=== PATIENT | female | born 1995 | race Caucasian/White ===

== ENCOUNTER → 2018-08-26 09:12 | Outpatient (CLI) | payer OTHER, SELFPAY ==
[2018-08-26 10:56] LABS: Cholesterol 179 mg/dL (200); Glucose 82 mg/dL (74-106); High Density Lipoprotein 82 mg/dL; Triglycerides 49 mg/dL; Very Low Density Lipoprotein 10 mg/dL (5-40)
== END ==
PROVIDERS: Family Provider Family Medicine; PCP Family Medicine; Visit Provider Family Medicine
DX: Z00.00 Encounter for general adult medical examination without abnormal findings (principal)
CPT/HCPCS: 36415; 80061; 82947

== ENCOUNTER → 2021-05-05 09:04 | Outpatient (CLI) | payer BC, SELFPAY ==
[2021-05-07 13:16] LABS: HPV Reflexed? NOT INDICATED
== END ==
PROVIDERS: PCP Family Medicine; Referring Provider Nurse Practitioner Women's Health; Visit Provider Nurse Practitioner Women's Health
DX: N76.0 Acute vaginitis (principal); Z12.4 Encounter for screening for malignant neoplasm of cervix
CPT/HCPCS: 87070; 87205; 88175; G0145

== ENCOUNTER → 2023-09-09 | Outpatient (CLI) | payer BC, SELFPAY ==
[2023-09-09 14:27] LABS: Absolute Lymphocyte Count 2.42 X10^3/uL (0.83-4.51); Absolute Neutrophil Count 4.7 X10^3/uL (2.0-7.7); Basophil# 0.04 X10^3/uL; Basophil% 0.5 % (0-1); Eosinophil# 0.04 X10^3/uL; Eosinophils% 0.5 % (0-5); Hematocrit 40.4 % (37-47); Hemoglobin 13.1 g/dL (12.0-15.0); Lymphocyte # 2.42 X10^3/ul (0.83-4.51); Lymphocyte % 30.9 % (19-41); Mean Corp Hgb Conc 32.4 g/dL (32-36); Mean Corpuscular Hgb 30.5 pg (27.0-32.0); Mean Corpuscular Volume 94.2 fL (81-99); Mean Platelet Vol. 8.9 fl (6.2-12.0); Monocyte# 0.62 X10^3/uL; Monocyte% 7.9 % (0-10); NRBC Flagged by Analyzer 0 % (0-5); Neutrophil # 4.68 X10^3/uL (2.7-7.7); Neutrophil % 59.9 % (47-70); Platelet Count 308 K/mm3 (150-450); RBC Distribution Width CV 13.3 % (11.6-14.6); RBC Distribution Width SD 45.9 fl (35.1-43.9); Red Blood Count 4.29 M/mm3 (4.2-5.4); White Blood Count 7.8 K/mm3 (4.4-11.0)
[2023-09-09 15:44] LABS: HIV - WCH Non-Reactive (Nonreactive); Hepatitis B Surface Antigen Non-Reactive (Nonreactive); Hepatitis C Antibody Non-Reactive (Nonreactive); Rubella IgG Reactive (Nonreactive); Syphilis Antibodies Non-reactive
[2023-09-11 09:33] LABS: V-Zoster IgG (Immunity) 300 index (Immune >165)
[2023-09-13 22:07] LABS: Chlamydia By Nucleic Acid AMP Negative (Negative); Gonococcus By Nucleic Acid AMP Negative (Negative)
== END | disposition home or self-care (01) ==
PROVIDERS: PCP Family Medicine; Referring Provider Advanced Practice Midwife; Visit Provider Advanced Practice Midwife
DX: Z34.90 Encounter for supervision of normal pregnancy, unspecified, unspecified trimester (principal)
CPT/HCPCS: 36415; 85025; 86703; 86762; 86780; 86787; 86803; 86850; 86900; 86901; 87086; 87088; 87340; 87491; 87591

== ENCOUNTER → 2023-11-24 | Outpatient (CLI) | payer BC, SELFPAY ==
--- NOTE | 2023-11-24 13:34 | US_ITS ---
STUDY: SECOND AND THIRD TRIMESTER OBSTETRICAL ULTRASOUND REASON FOR EXAM: Female, 28 years old . anatomy scan. LMP: July 07, 2023. TECHNIQUE: Transabdominal TECHNICAL QUALITY: Adequate. PRIOR ULTRASOUND: None. FINDINGS: There is a single intrauterine fetus. The fetus is in an transverse lie with the head on the maternal left side. There is demonstrated cardiac activity with a heart rate of 153 bpm. There is a normal amniotic fluid volume. The largest amniotic fluid pocket measures 3.3 cm x 5.8 cm. The amniotic fluid index (NICOLETTE) is within normal limits. The placenta is posterior in location and is not low lying. The tip of the placenta is at 2.8 cm proximal to the cervical os. There are Grade 0 placental changes. The cervix measures 4.8 cm in length. The bilateral adnexal regions are normal. BIOMETRY: BPD: 5.1 cm: 21 weeks, 4 days HC: 18.1 cm: 20 weeks, 4 days AC: 15.4 cm: 20 weeks, 4 days FL: 3.1 cm: 19 weeks, 5 days CI: 84% FL/BPD: 61% FL/HC: FL/AC: 20% HC/AC: 1.18 age by current US: 20 weeks, 3 days. IFRAH by current US: April 09, 2027. Estimated weight: 349 grams, +/- 52 grams, 66 %. Age by LMP: 20 weeks, 0 days. IFRAH by LMP: April 12, 2024. ANATOMY: Gender: Indeterminant Cranium: Normal lateral ventricles. Normal choroid plexus. Normal cerebellum. Normal cisterna magna. Normal face, nose and lips. Chest: Normal 4-chamber heart. Abdomen/Pelvis: Normal diaphragm. Normal stomach. Normal abdominal wall. Normal cord insertion. Normal 3 vessel cord. Normal kidneys. Normal bladder. Spine: Normal cervical spine. Normal thoracic spine. Normal lumbar spine. Normal sacrum. Extremities: Normal bilateral upper extremities. Normal bilateral lower extremities. US/OB Anatomy w/ Transvaginal IMPRESSION: Single live intrauterine gestation with a mean gestational age of 20 weeks and 3 days. Electronically Signed: Guillermo Duran MD at 15:15 EDT ,
== END | disposition home or self-care (01) ==
PROVIDERS: PCP Family Medicine; Referring Provider Obstetrics & Gynecology; Visit Provider Obstetrics & Gynecology
DX: O09.90 Supervision of high risk pregnancy, unspecified, unspecified trimester (principal); Z3A.00 Weeks of gestation of pregnancy not specified
CPT/HCPCS: 76805; 76817

== ENCOUNTER 2024-01-20 14:09 | Outpatient (CLI) | payer BC, SELFPAY ==
[2024-01-20 14:44] LABS: Absolute Lymphocyte Count 2.12 X10^3/uL (0.83-4.51); Absolute Neutrophil Count 6.1 X10^3/uL (2.0-7.7); Basophil# 0.03 X10^3/uL; Basophil% 0.3 % (0-1); Eosinophil# 0.03 X10^3/uL; Eosinophils% 0.3 % (0-5); Hematocrit 37.3 % (37-47); Hemoglobin 12.3 g/dL (12.0-15.0); Lymphocyte # 2.12 X10^3/ul (0.83-4.51); Lymphocyte % 23.7 % (19-41); Mean Corpuscular Hgb 31.3 pg (27.0-32.0); Mean Corpuscular Volume 94.9 fL (81-99); Mean Platelet Vol. 8.9 fl (6.2-12.0); Monocyte# 0.63 X10^3/uL; Monocyte% 7.1 % (0-10); NRBC Flagged by Analyzer 0 % (0-5); Neutrophil % 68.4 % (47-70); Platelet Count 272 K/mm3 (150-450); RBC Distribution Width CV 12.9 % (11.6-14.6); RBC Distribution Width SD 44.9 fl (35.1-43.9); Red Blood Count 3.93 M/mm3 (4.2-5.4); White Blood Count 8.9 K/mm3 (4.4-11.0)
[2024-01-20 14:57] LABS: Glucose Challenge Gest 1H 50g 142 mg/dL (70-140)
[2024-01-20 20:35] LABS: HIV - WCH Non-Reactive (Nonreactive); Syphilis Antibodies Non-reactive
== END 2024-01-20 23:59 | disposition home or self-care (01) ==
PROVIDERS: Advanced Practice Midwife; PCP Family Medicine; Referring Provider Nurse Practitioner Women's Health; Visit Provider Nurse Practitioner Women's Health
DX: O09.92 Supervision of high risk pregnancy, unspecified, second trimester (principal); Z3A.23 23 weeks gestation of pregnancy; Z13.1 Encounter for screening for diabetes mellitus
CPT/HCPCS: 36415; 82950; 85025; 86703; 86780

== ENCOUNTER → 2024-01-25 | Outpatient (CLI) | payer BC, SELFPAY ==
[2024-01-25 07:26] LABS: Bedside Glucose 78 mg/dL (74-106)
[2024-01-25 07:47] LABS: Glucose GTT- Fasting 87 mg/dL (74-106)
[2024-01-25 08:54] LABS: Glucose GTT-30 minutes 136 mg/dL (110-170)
[2024-01-25 09:00] LABS: Glucose GTT- 1 Hour 145 mg/dL (120-170)
[2024-01-25 09:35] LABS: Glucose GTT- 2 Hour 124 mg/dL (70-120)
[2024-01-25 11:12] LABS: Glucose GTT- 3 Hour 103 mg/dL (74-106)
== END | disposition home or self-care (01) ==
LOC: LAB 06:55
PROVIDERS: PCP Family Medicine; Referring Provider Advanced Practice Midwife; Visit Provider Advanced Practice Midwife
DX: O99.810 Abnormal glucose complicating pregnancy (principal); Z3A.00 Weeks of gestation of pregnancy not specified
CPT/HCPCS: 36415; 82951; 82952; 82962

== ENCOUNTER → 2024-03-17 | Outpatient (CLI) | payer OTHER, SELFPAY | END | disposition home or self-care (01) | LOC: LABSPEC 16:33 | PROVIDERS: PCP Family Medicine; Referring Provider Obstetrics & Gynecology; Visit Provider Obstetrics & Gynecology | DX: Z34.93 Encounter for supervision of normal pregnancy, unspecified, third trimester (principal) | CPT/HCPCS: 87081 ==

== ENCOUNTER → 2024-04-04 | Outpatient (CLI) | payer OTHER, SELFPAY ==
[2024-04-04 09:26] LABS: Absolute Lymphocyte Count 2.02 X10^3/uL (0.83-4.51); Absolute Neutrophil Count 4.6 X10^3/uL (2.0-7.7); Basophil# 0.05 X10^3/uL; Basophil% 0.7 % (0-1); Eosinophil# 0.05 X10^3/uL; Eosinophils% 0.7 % (0-5); Hematocrit 38.5 % (37-47); Hemoglobin 12.7 g/dL (12.0-15.0); Lymphocyte # 2.02 X10^3/ul (0.83-4.51); Lymphocyte % 26.9 % (19-41); Mean Corpuscular Volume 93.9 fL (81-99); Mean Platelet Vol. 10.3 fl (6.2-12.0); Monocyte# 0.75 X10^3/uL; NRBC Flagged by Analyzer 0 % (0-5); Neutrophil # 4.61 X10^3/uL (2.7-7.7); Neutrophil % 61.4 % (47-70); Platelet Count 206 K/mm3 (150-450); RBC Distribution Width CV 13.4 % (11.6-14.6); White Blood Count 7.5 K/mm3 (4.4-11.0)
[2024-04-04 09:44] LABS: ALB/GLOB Ratio 0.7 RATIO (0.9-2.4); AST(SGOT) 18 U/L (15-37); Alanine Aminotransfer ALT/SGPT 16 U/L (13-56); Albumin, Serum 2.8 g/dL (3.2-5.0); Alkaline Phosphatase 137 U/L (45-117); Anion Gap 6 (5-15); BUN 11 mg/dL (7-18); Calcium,Total 9.7 mg/dL (8.5-10.1); Chloride 107 mmol/L (98-107); Creatinine, Serum 0.78 mg/dL (0.55-1.02); EST Glomerular Filtration Rate 93 mL/min (>60); Est Glom Filt Rate - Afr Amer 113 mL/min (>60); Globulin 4.2 g/dL (2.2-4.2); Glucose 81 mg/dL (74-106); Potassium 4.2 mmol/L (3.5-5.1); Sodium Level 138 mmol/L (136-145)
[2024-04-04 09:45] LABS: Protein, Urine (Random) 6.9 mg/dL (<11.9); Protein:Creat Ratio 155 mg/g CRE (0-200)
[2024-04-04 11:09] LABS: Protein, Urine (Random) 26.8 mg/dL (<11.9); Protein:Creat Ratio 174 mg/g CRE (0-200)
== END | disposition home or self-care (01) ==
PROVIDERS: PCP Family Medicine; Referring Provider Obstetrics & Gynecology; Visit Provider Obstetrics & Gynecology
DX: O12.00 Gestational edema, unspecified trimester (principal); Z3A.00 Weeks of gestation of pregnancy not specified
CPT/HCPCS: 36415; 80053; 82570; 84156; 85025

== ENCOUNTER 2024-04-11 13:23 | Inpatient (IN) | payer OTHER, SELFPAY ==
[2024-04-11] VITALS (15 sets, daily range): BP systolic 139–173; BP diastolic 75–93; PULSE 70–85; RESP 16; TEMP 36.1–36.9; O2SAT 95–99; BMI 31.0
--- NOTE | 2024-04-11 12:57 | HP.PCM.OB_ITS ---
HPI - General HPI Narrative MARGRET GASTELUM, is a 29 y/o @ 39 weeks 6 days who presents to L&D for high blood pressures and pitting edema. She denies headache or visual changes. PIH labs are pending today but were negative last week. Maternal Data Information IFRAH Calculator Estimated Delivery Date Method Current WG Current Estimate 04/12/24 LMP (Certain) 39w 6d PFSH PFSH Medical History Frequent headaches Home Medications ?Medication ?Instructions ?Recorded ?Last Taken ?Type ascorbic acid (vitamin C) 500 mg 500 mg PO DAILY 09/03/23 04/11/24 06:47 History tablet calcium carbonate (Calcium 600) 600 mg PO DAILY 09/03/23 Unknown History licorice root (G.glabra) 450 mg mg PO immunity boost 09/03/23 04/11/24 History capsule multivitamin no.47-iron fum 27 cap PO 09/03/23 Unknown History mg-folate no.1 1 mg-dha 300 mg capsule (PNV-DHA) sertraline 50 mg tablet 50 mg PO 04/11/24 04/10/24 22:00 History 50 mg Allergy/AdvReac Type Severity Reaction Status Date / Time Latex, Natural Rubber Allergy Unknown PT UNSURE Verified 04/11/24 12:47 OF REACTION Family History Mother Cancer, Onset Age: 48 Ovarian FH: multiple miscarriages or stillbirths 2 miscarriages Aunt Breast cancer Surgical History [place] teeth removed Social History adopted: No household members: spouse current occupational status: employed current occupation: [employer] current occupational exposures/hazards: No pets and animals: No history of recent travel: No sexually active: Yes Smoking Status: Never smoker second hand exposure: No alcohol intake: never substance use type: does not use well-balanced diet: daily or most days caffeine: No eating out: 1-3 times/week during the past year weight has: increased > 10 lbs what type of physical activity do you participate in: none chau/church: Islam seatbelt use: always do you feel safe at home: Yes additional social history: - Giancarlo Gastelum History 1 Elective abortions Hx Para 0 Spontaneous abortions Hx # Term Pregnancies Ectopic pregnancies Hx # Pregnancies Multiple births # of living children Visit Details Expected Delivery Route/Plan Labor Preferences- CB/BF classes: scheduled labor support person: Giancarlo labor intervention preferences: [] pain management options preferred: epidural cut cord/dad catch: yes : yes PP control planned: discussed discussed possible routes of delivery and associated risks: [] special requests: [] Plans Covid status: [] Flu vaccine: [] Tdap vaccine: given Rhogam: na LARC form signed: declined movement and labor precautions reviewed. Problem list reviewed and updated with the most current plan of care details and appropriate orders placed. Relevant counseling for the gestational age provided. Continue routine care and follow up unless otherwise noted in visit notes/problem list details OB Flowsheet Initial Weight: Not Recorded Date -?-?-?-?-?-?-?-?-?-?-?-?- EGA Weight BP Urine Prot -?-?-?-?-?-?-?-?-?-?-?-?- Glucose FHR FuHt Pres Dilation -?-?-?-?-?-?-?-?-?-?-?-?- Effaced St Visit Note 09/09/23 -?-?-?-?-?-?-?-?-?-?-?-?- 9w 1d 163 lb 2 oz 124/80 -?-?-?-?-?-?-?-?-?-?-?-?- 185 -?-?-?-?-?-?-?-?-?-?-?-?- KW-CRL cons with dates. doing well. Discussed NIPT and carrier and wants to check with insurance. 09/30/23 -?-?-?-?-?-?-?-?-?-?-?-?- 12w 1d 162 lb 8 oz 140/85 Nega tive -?-?-?-?-?-?-?-?-?-?-?-?- Negative 171 -?--?-?-?-?-?-?-?-?-?-?-?- kw- work in for vaginal bleeding. US showed movement and strong FHT. rh positive. precautions given 10/29/23 -?-?-?-?-?-?-?-?-?-?-?-?- 16w 2d 161 lb 2 oz 133/83 Nega tive -?-?-?-?-?-?-?-?-?-?-?-?- Negative 156 -?-?-?-?-?-?-?-?-?-?-?-?- JV- still spotti ng from time to time. on exam no blood is present in vagina but there is a string of brown mucous coming from the os. The os is closed and the cervix appears long and healthy. Recommend refraining from vigorous exercise and sex until anatomy scan is back and confirms no previa. 11/25/23 -?-?-?-?-?-?-?-?-?-?-?-?- 20w 1d 166 lb 136/86 -?-?-?-?-?-?-?-?-?-?-?-?- 145 -?-?-?-?-?-?-?--?-?-?-?-?- SM- no vb lof cr maping reviewed labs and US 12/20/23 -?-?-?-?-?-?-?-?-?-?-?-?- 23w 5d 169 lb 4 oz 131/83 Nega tive -?-?-?-?-?-?-?-?-?-?-?-?- Negative 139 -?-?-?-?-?-?-?-?-?-?-?-?- MH-No VB, LOF. G ood FM. 28 labs next visit. 01/20/24 -?-?-?-?-?-?-?-?-?-?-?-?- 28w 1d 168 lb 6 oz 115/79 Nega tive -?-?-?-?-?-?-?-?-?-?-?-?- Negative 145 28 -?-?-?-?-?-?-?-?-?-?-?-?- KW- no vb/lof/ct x. good fm. discussed results. needs 3 hour. Declines Tdap. LARC today. CBE classes in 02/02/24 -?-?-?-?-?-?-?-?-?-?-?-?- 30w 0d 172 lb 4 oz 122/75 -?-?-?-?-?-?-?-?-?-?-?-?- 140 30 -?-?-?-?-?-?-?-?-?-?-?-?- JV- no lof, vagi nal bleeding, or dec fm. 02/17/24 -?-?-?-?-?-?-?-?-?-?-?-?- 32w 1d 172 lb 130/86 -?-?-?-?-?-?-?-?-?-?-?-?- 145 32 -?-?-?-?-?-?-?-?-?-?-?-?- SM- no vb lof go od fm no regular ctx some pelvic pressure no uti symptoms SM- no vb lof good fm no reg ular ctx some pelvic pressure with walking and exercise. no uti symptoms 03/17/24 -?-?-?-?-?-?-?-?-?-?-?-?- 36w 2d 178 lb 4 oz 130/82 Nega tive -?-?-?-?-?-?-?-?-?-?-?-?- Negative 150 36 Cephalic 0 -?-?-?-?-?-?-?-?-?-?-?-?- JV- no lof, vagi nal bleeding, or dec fm. gbs collected 03/22/24 -?-?-?-?-?-?-?-?-?-?-?-?- 37w 0d 179 lb 2 oz 123/83 Nega tive -?-?-?-?-?-?-?-?-?-?-?-?- Negative 153 37 -?-?-?-?-?-?-?-?-?-?-?-?- MH-No Vb, LOF. G ood FM. No CTX. Neg GBS 03/28/24 -?-?-?-?-?-?-?-?-?-?-?-?- 37w 6d 183 lb 140/89 Negative -?-?-?-?-?-?-?-?-?-?-?-?- Negative 140 37 Cephalic -?-?-?-?-?-?-?-?-?-?-?-?- SM- no vb lof go od fm no regular ctx 04/04/24 -?-?-?-?-?-?-?-?-?-?-?-?- 38w 6d 181 lb 2 oz 131/88 Nega tive -?-?-?-?-?-?-?-?-?-?-?-?- Negative 143 37 Cephalic 0 .5 -?-?-?-?-?-?-?-?-?-?-?-?- 30 JV- send ing for PIH labs due to last 2 weeks of borderline pressures and significant pitting edema. patient has no complaints. ROS Constitutional Constitutional: Denies change in weight, fatigue, fever(s), headache(s), poor appetite or weakness Eyes Eyes: Denies blurry vision, change in vision, seeing flashes or spots in vision ENT HEENT: Denies dizziness, headache(s), loss taste/smell or sore throat Cardiovascular Cardiovascular: Denies chest pain, dizziness, dyspnea, irregular heart rhythm, leg edema, palpitations, rapid heart rate or vomiting Respiratory/Chest Respiratory/Chest: Denies chest tightness, cough, dyspnea or breast pain Gastrointestinal Gastrointestinal: Denies abdominal pain, anorexia, constipation, cramping, diarrhea, hemorrhoids, vomiting or weight changes Genitourinary Genitourinary: Denies dysuria, flank pain, genital lesions, genital pain, urinary frequency or urinary urgency Musculoskeletal Musculoskeletal: Denies back pain, difficulty walking, joint pain, limited range of motion, muscle cramps or numbness Integumentary Integumentary: Denies lesions or unusual bruising Neurologic Neurologic: Denies abnormal movements, abnormal speech, dizziness, numbness, se izure-like activity or syncope Psychiatric Psychiatric: Denies anxiety, behavioral changes, change in appetite, change in libido, cognitive impairment, confusion, depression, difficulty concentrating, hallucinations or suicidal thoughts Endocrine Endocrinology: Denies excessive sweating, polydipsia or polyuria Hematologic/Lymphatic Hematologic/Lymphatic: Denies easy bleeding, easy bruising or lymphadenopathy Allergic/Immunologic Allergic/Immunologic: Denies itchy eyes, lip swelling, seasonal rhinorrhea, rhinitis, throat swelling, tongue swelling, eczemia, wheezing or asthma Vital Signs Vital Signs Vital Signs: 04/11/24 12:17 04/11/24 12:17 04/11/24 12:33 Pulse Rate 84 Blood Pressure 145/93 H 143/90 H BP Systolic 145 143 BP Diastolic 93 90 04/11/24 12:33 04/11/24 12:47 04/11/24 12:47 Pulse Rate 85 81 Blood Pressure 157/91 H BP Systolic 157 BP Diastolic 91 Weight Weight: 181 lb Body Mass Index (BMI) 31.0 Physical Exam Const alert, oriented x3, no apparent distress and healthy appearing General Appearance: cooperative; Negative for anxious HEENT normocephalic Face and Sinus: normal facial exam Eyes EOMs intact bilaterally and no scleral icterus General Eye: normal appearance of both eyes Neck full ROM and supple Lymph Lymphatic: no lymphadenopathy noted Chest Chest: abnormal inspection of the chest Resp normal respiratory effort Effort and Inspection: able to speak in complete sentences Cardio regular rate GI soft to palpation and non-tender Inspection: gravid Palpation: soft; Negative for tender Back/Spine no CVA tenderness Extremity normal to inspection, full ROM and no clubbing, cyanosis or edema General Extremity: Negative for calf tenderness or edema Skin Lesions: no lesions Rashes: no rashes Psych mental status grossly normal Labs Labs Labs: Blood Type A POSITIVE Antibody Screen NEGATIVE Hct 38.5 % (37-47) Hgb 12.7 g/dL (12.0-15.0) Obstetrics Ultrasound Syphilis Total Ab Non-reactive VZV IgG Antibody 300 index (Immune >165) Rubella IgG Antibody Reactive (Nonreactive) Hep Bs Antigen Non-Reactive (Nonreactive) Hepatitis C Antibody Non-Reactive (Nonreactive) Chlamydia DNA (VALENTE) Negative (Negative) N.gonorrhoeae DNA (VALENTE) Negative (Negative) HIV 1&2 Antibody Non-Reactive (Nonreactive) Glucose 1 Hr 50 gm 142 mg/dL (70-140) H Assessment & Plan (1) Gestational hypertension: (2) Swelling of lower extremity during : (3) Abnormal glucose affecting : COMMENT: passed 3 hour (4) Family history of autistic disorder: COMMENT: (5) Supervision of high-risk : QUALIFIERS: Trimester: third trimester Qualified Code(s): O09.93 - Supervision of high risk , unspecified, third trimester COMMENT: PRR , IFRAH 04/12/24, surprise Giancarlo (6) : QUALIFIERS: Weeks of gestation: 39 weeks Qualified Code(s): Z3A.39 - 39 weeks gestation of COMMENT: declined ntd genetic & carrier testing, nl anatomy (7) Anxiety: COMMENT: zoloft- OCD tendencies, not dx; stable (8) Family history of malignant neoplasm of ovary in first degree relative: COMMENT: Mother dx age 48. surgery and chemo, 10 yr post dx. Counseled on testing and declines presently. Declines PLAN: Plan Patient presents IOL, plan management for with cytotec then calderon/ p itocin/AROM. Pain management: plans epidural. GBS negative. Management of any complications: gestational hypertension- ordering PIH labs. likely will start with cytotec. I have reviewed the [facility] and made any clinically relevant updates.
[2024-04-11 13:19] LABS: Hematocrit 38.3 % (37-47); Hemoglobin 12.6 g/dL (12.0-15.0); Mean Corp Hgb Conc 32.9 g/dL (32-36); Mean Corpuscular Hgb 31.1 pg (27.0-32.0); Mean Corpuscular Volume 94.6 fL (81-99); Platelet Count 215 K/mm3 (150-450); RBC Distribution Width CV 13.3 % (11.6-14.6); RBC Distribution Width SD 45.9 fl (35.1-43.9); Red Blood Count 4.05 M/mm3 (4.2-5.4); White Blood Count 6.8 K/mm3 (4.4-11.0)
[2024-04-11 13:21] LABS: AST(SGOT) 18 U/L (15-37); Alanine Aminotransfer ALT/SGPT 17 U/L (13-56); Creatinine, Serum 0.72 mg/dL (0.55-1.02); Creatinine, Urine (random) < 13.00 mg/dL (NO RANGE EST.); EST Glomerular Filtration Rate 104 mL/min (>60); Est Glom Filt Rate - Afr Amer 126 mL/min (>60); Estimated Creatinine Clearance 121.66 ml/min; Protein, Urine (Random) < 6.0 mg/dL (<11.9); Uric Acid 4.1 mg/dL (2.6-6.0)
[2024-04-11 14:29] LABS: Syphilis Antibodies Non-reactive
[2024-04-11] MEDS: miSOPROStol 25 MCG TABLET VAGINAL (14:38)
[2024-04-11] MEDS: 0.9% Saline Lock 10 ML Syringe IV ×2 (14:41→21:16)
[2024-04-11] MEDS: 0.9% Normal Saline Single 100 ML IV.SOLN. INTRA-UTER (18:08)
--- NOTE | 2024-04-11 18:17 | PCM.PN.BLA ---
Progress Note patient is comfortable in bed. She has received 1 dose of cytotec and renay q 2 min. current tracing: FHT: Moderate variability reactive no decelerations category I tracing Gallant: q 2 min Contractions cx 1 50/-2, calderon balloon placed and inflated with 60cc of NS. The patient tolerated this well A/P: if able based on contraction patter, plan for buccal cytotec next 25 mcg.
[2024-04-11] MEDS: miSOPROStol 25 MCG TABLET BUCCAL (18:45)
[2024-04-11] MEDS: Ondansetron 4 MG/2 ML Vial IV (21:16)
[2024-04-11] MEDS: Lactated Ringers 1,000 ML 50 ML IV (22:36)
[2024-04-12] VITALS (76 sets, daily range): BP systolic 127–162; BP diastolic 63–109; PULSE 62–141; RESP 14–18; TEMP 36.1–37.4; O2SAT 92–100
[2024-04-12] MEDS: LACTATED RINGERS 500 ML 999 ML IV ×2 (00:45→02:38)
[2024-04-12] MEDS: fentaNYL-bupivacaine (epidural) 100 ML BAG EPIDURAL ×3 (01:44→10:20)
[2024-04-12] MEDS: Amnioinfusion- 0.9% NS 1,000 ML IV.SOLN. INTRA-UTER (05:20)
[2024-04-12] MEDS: Lactated Ringers 1,000 ML 200 ML IV ×2 (06:16→11:47)
--- NOTE | 2024-04-12 12:52 | OP.PCM_ITS ---
Assessment & Plan (1) Gestational hypertension: (2) Abnormal glucose affecting : COMMENT: passed 3 hour (3) Family history of autistic disorder: COMMENT: (4) Supervision of high-risk : QUALIFIERS: Trimester: third trimester Qualified Code(s): O09.93 - Supervision of high risk , unspecified, third trimester COMMENT: PRR , IFRAH 04/12/24, surprise Giancarlo (5) : QUALIFIERS: Weeks of gestation: 39 weeks Qualified Code(s): Z3A.39 - 39 weeks gestation of COMMENT: declined ntd genetic & carrier testing, nl anatomy (6) Anxiety: COMMENT: zoloft- OCD tendencies, not dx; stable (7) Family history of malignant neoplasm of ovary in first degree relative: COMMENT: Mother dx age 48. surgery and chemo, 10 yr post dx. Counseled on testing and declines presently. Declines (8) Vaginal delivery: Maternal Data Information IFRAH Calculator Estimated Delivery Date Method Current WG Current Estimate 04/12/24 LMP (Certain) 40w 0d Vaginal Delivery Operative Information Date of Procedure: 04/12/24 Pre-Operative Diagnosis: see a/p diagnoses Post-Operative Diagnosis: same Surgery / Procedure Performed: Spontaneous Vaginal Delivery Type of Anesthesia: Epidural Special Medications: none Estimated Blood Loss: 400 Fluids Replaced: crystalloid Findings Description of Procedure: Patient began pushing and delivered the head in the ANNA presentation. The head was delivered atraumatically . The anterior and posterior shoulders delivered without complication followed by the rest of the infant and the infant was placed on the maternal abdomen. Delayed cord clamping was employed for approximately 60 seconds. Cord was clamped and cut and gentle traction was applied to the cord and the placenta delivered spontaneously immediately following it was noted to be intact with three-vessel cord. The perineum and vagina were inspected and noted to have a second degree perineal laceration which was repaired in the usual fashion with 3-0 vicryl rapide. . EBL was 400. Patient and infant tolerated delivery well. Amniotic Fluid Description: Clear Placental Delivery Description: Spontaneous Placenta Disposition: [facility] Cord Vessel Description: 3 Vessels Cord Entanglement: None Delayed Cord Clamping: Yes Post Vaginal Delivery Medications Given After Delivery: IV Pitocin Episiotomy Description: None Complication Complications: None Procedures Urinary/Genital [id number]: [id number] Vaginal Delivery [facility]
[2024-04-12] MEDS: Oxytocin 15 Units/NS 250ml 15 UNITS/250 ML IV.SOLN 334 UNITS IV (13:05)
[2024-04-12] MEDS: Oxytocin 15 Units/NS 250ml 15 UNITS/250 ML IV.SOLN 83 UNITS IV (13:35)
[2024-04-12] MEDS: 0.9% Saline Lock 10 ML Syringe IV (17:27)
[2024-04-12] MEDS: Acetaminophen 500 MG Tablet 1000 MG PO (21:56)
[2024-04-13 04:14] VITALS: BP 137/75; PULSE 67; RESP 16; TEMP 36.3; O2SAT 96
[2024-04-13 08:00] VITALS: BP 138/92; PULSE 73; RESP 16; TEMP 36.5; O2SAT 98
--- NOTE | 2024-04-13 08:15 | PN.OBGYN_ITS ---
Subjective Subjective Patient doing well without complaints. Tolerating PO. Ambulating and voiding without difficulty. Feeding well. Denies chest pain, shortness of breath, calf pain/swelling, fevers, chills, lightheadedness. Note fluncuating BPs Objective Data Objective Data Vital Signs: Vital Signs Temp Pulse Resp BP Pulse Ox O2 Del Method 97.7 F L 73 16 138/92 H 98 Room Air 04/13/24 08:00 04/13/24 08:00 04/13/24 08:00 04/13/24 08:00 04/13/24 08:00 04/13/24 08:00 Oxygen Delivery Method Room Air Weight: 181 lb Body Mass Index (BMI) 31.0 Intake & Output: Intake and Output for Last 24 Hours 04/11/24 04/12/24 04/13/24 23:59 23:59 23:59 Intake Total 4370.33 / 4370.33 Output Total 2 / 2 2300 / 2300 Balance -2 / -2 2070.33 / 2070.33 Lab / Micro Data 04/11/24 13:00 04/11/24 13:00 Physical Exam Const alert and oriented x3 HEENT normocephalic Eyes PERRL Neck full ROM Resp normal respiratory effort GI soft to palpation GI Narrative: FF below U Assessment & Plan (1) Vaginal delivery: COMMENT: YOCASTA Jensen (2) Gestational hypertension: QUALIFIERS: Trimester: unspecified trimester Qualified Code(s): O 13.9 - Gestational [-induced] hypertension without significant proteinuria, unspecified trimester COMMENT: labetalol start PPD #1 PLAN: Plan s/p PPD #1 1. routine post delivery care 2. breast feeding- support given 3. rh positive 4. rubella immune 5. consult Dr Pierce and will start labetalol. 6. plans home today if BP stable
[2024-04-13] MEDS: Labetalol 100 MG Tablet PO (09:36)
[2024-04-13] MEDS: Naproxen 500 MG Tablet PO (09:43)
[2024-04-13 10:12] VITALS: BP 146/93
[2024-04-13 12:08] VITALS: BP 130/74; PULSE 96; RESP 18; TEMP 36.7
--- NOTE | 2024-04-13 12:51 | CASEMGMT ---
Social Work Assessment Labor and Delivery Unit Patient Address:[address] [place] [address] Phone number: [phone] Date of Referral: 04/12/24 Time of Referral:? 1621 Referred By: Dr. Malhotra Date of Intervention: ??04/13/24 Time of Intervention:? 1200 Reason for Referral:? anxiety, on zoloft Sw completed chart review and acknowledges social work consult due to maternal mental health history. Sw presented to bedside and introduced self to mother of baby (MOB- Lia) and father of baby (FOB- Giancarlo). Sw explained reason for sw involvement and completed psychosocial assessment. History obtained from: medical records, MOB and FOB Household composition: Currently residing in the family home is MOB, FOB and baby when ready for discharge. Housing is reported to be safe and secure, no concerns. Patient's parent/guardian status:? ?JIM states that she and NITISH have been together for 4 years after meeting at [place]. No concerns reported of domestic violence or intimate partner violence. Medical History: ?JIM is 29 year old female who is 1, para 0- now 1 following labor and delivery of . JIM received routine care with [facility] during . JIM presented to hospital due to elevated blood pressure, and delivered baby at 39 weeks gestation via vaginal delivery on 04/12/24. Baby boy, named Mikey, was born weighing 7lb 14oz with apgars of 9 and 9 at one and five minutes of life, respectfully. JIM is breast feeding and baby will be followed by Dr. Inman for pediatrics. Educational Status:? Both parents graduated from high school. JIM has obtained her Master's degree in counseling. NITISH is two classes away from obtaining his Master's degree. No difficulties with reading, learning or comprehension. Financial Status: Both parents are gainfully employed outside of the home. NITISH works as a teacher for [employer], and JIM works one day a week at [employer]. JIM states that she took 5 weeks off of work now that baby has been born. Infant Supplies:??Parents report that they have obtained all necessary baby supplies, including: car, safe sleep space, clothes, diapers and wipes. Childcare/Caregiver(s):? JIM will be primary caregiver to baby along with NITISH when he is not working. Transportation:?Both parents have their drivers license and reliable means of transportation, no barriers at this time. ? Programs/Agencies Involved: ?JIM states that she is connected to counseling supports and services through [facility]. ?? Children Services/Legal Issues:??? No children services history, no concerns warranting referral to be made at this time. Behavioral Health Issues: ??Mental Health History:?NITISH denies mental health diagnoses. JIM states that she has been diagnosed with anxiety. MOB states that her anxiety stems from OCD tendencies. MOB states that she is prescribed zoloft by her primary care doctor. JIM reports that she has healthy and appropriate coping skills to utilize if she starts to feel impacted by her mental health symptoms. ?? Substance Use History:?Parents deny substance use prior to and during . ? Family History:??Parents deny family history of substance use and significant mental health diagnoses. ??? Drug Screens: ??No drug screens observed in chart review. Family/Social Stressors:? Parenst deny any issues, concerns or stressors at this time. Support Systems: JIM identifies FOAlec as her biggest support, along with both sets of grandparents. Depression/Shaken Baby/Safe Sleeping:? Sw educated parents on signs and symptoms of baby blues and mood and anxiety disorders. Sw explained to MOB that due to her mental health history she is more at risk for experiencing one or the other or both at some point during her journey. MOB expressed understanding. NITISH stated that if JIM were to struggle during this time, he would be able to recognize that she is struggling and would know how to help and support her. Sw encouraged parents to have a conversation about these issues. Parents agreed. Sw educated parents on shaken baby prevention and ABCs of safe sleep. Parents express understanding. ASSESSMENT:? MOB and baby admitted following labor and delivery. MOB and FOB observed to be supports to one another. Both parents participated openly during completion of psychosocial assessment. MOB with mental health history and is aware of signs and symptoms of baby blues and mood and anxiety disorders to be on the lookout for during this period. Parents have a lot of natural supports in place and have obtained all necessary baby supplies. PLAN:? MOB and baby to be discharged when medically ready. ?No other services requested or indicated. Chris Bowman, DENTAL HYGIENE ADMINISTRATIVE ASSISTANT, BOAT LOADER HELPER
[2024-04-13] MEDS: Senna/Docusate Sodium 1 Tablet PO (14:20)
--- NOTE | 2024-04-17 13:56 | NURSING ---
04-14-24, here for visit. Patient states she is feeling good. Denies any headaches, visual changes, or epigastric pain. Patient states her bleeding is minimal and denies any pain. Patient states went well overnight and she thinks her milk is coming in. Patient states she understood all of her discharge instructions and was satisfied with her care.
== END 2024-04-13 14:45 | disposition home or self-care (01) | DRG 807 ==
PROVIDERS: Obstetrics & Gynecology; Admitting Provider Obstetrics & Gynecology; PCP Family Medicine; Referring Provider Obstetrics & Gynecology; Visit Provider Obstetrics & Gynecology
DX: O13.4 Gestational [pregnancy-induced] hypertension without significant proteinuria, complicating childbirth (principal); Z37.0 Single live birth; O99.344 Other mental disorders complicating childbirth; F41.9 Anxiety disorder, unspecified; O70.1 Second degree perineal laceration during delivery; Z3A.39 39 weeks gestation of pregnancy; Z80.41 Family history of malignant neoplasm of ovary; Z81.8 Family history of other mental and behavioral disorders
CPT/HCPCS: 59025; 59050; 82565; 82570; 84156; 84450; 84460; 84550; 85027; 86780; 86850; 86900; 86901; 99221; J7030; J7120; A4216; G0378; J2405

== ENCOUNTER → 2024-05-24 | Outpatient (CLI) | payer OTHER, SELFPAY ==
[2024-05-31 09:37] LABS: HPV Reflexed? NOT INDICATED
== END | disposition home or self-care (01) ==
LOC: LABSPEC 14:43
PROVIDERS: PCP Family Medicine; Visit Provider Nurse Practitioner Women's Health
DX: Z12.4 Encounter for screening for malignant neoplasm of cervix (principal)
CPT/HCPCS: 88175; G0145